=== PATIENT | male | born 1970 | race Caucasian/White ===

== ENCOUNTER → 2023-06-20 | Outpatient (CLI) | payer BC ==
--- NOTE | 2023-06-20 16:36 | Diagnostic Imaging Report ---
EXAMINATION: Left wrist radiographs, 3 views. COMPARISON: None. HISTORY: 52-year-old male, left wrist pain. FINDINGS: There is no identified acute fracture. There is no radiopaque foreign body. Bone mineralization and alignment is unremarkable. The joint spaces are well preserved. IMPRESSION: Unremarkable radiographs of the left wrist. Dictated by: Dictated on workstation # [id number]
--- NOTE | 2023-06-20 16:36 | Diagnostic Imaging Report ---
EXAMINATION: Right knee radiographs, 3 views. COMPARISON: None. HISTORY: 52-year-old male, right knee pain. FINDINGS: There is mild patellofemoral compartment joint space loss. There is no knee joint effusion. There is mild medial compartment joint space loss with osteophytes. There is no identified acute fracture. There is a probable intrajugular ossified body anteriorly measuring 8 mm in size. There is degenerative type patellar enthesopathy. IMPRESSION: 1. Mild medial and patellofemoral compartment osteoarthritis without large knee joint effusion. Probable intra-articular body anteriorly measuring 8 mm in size. Dictated by: Dictated on workstation # [id number]
== END ==
LOC: RAD 15:50
PROVIDERS: ATTEND Physician Assistant
DX: M17.11 Unilateral primary osteoarthritis, right knee (principal); M25.532 Pain in left wrist; G89.29 Other chronic pain
CPT/HCPCS: 73110; 73562

== ENCOUNTER 2023-08-13 19:06 | Emergency (ER) | payer BC ==
[~2023-08-13] VITALS: Ht 182 cm; Wt 79.8 kg
[2023-08-13 19:29] VITALS: BP 145/92
--- NOTE | 2023-08-13 20:10 | ED Cough/URI ---
General Chief Complaint: Cough/Cold/Flu Symptoms Stated Complaint: BURNING IN CHEST, CONGESTION, HEAVY SWEATING Nursing Triage Note: PATIENT STATES SHORT OF BREATH, STATES FELLS LIKE HE IS ONLY USING "HALF HIS LUNG" TO BREATH Source: patient Exam Limitations: no limitations History of Present Illness Date Seen by Provider: Aug 13, 2023 Time Seen by Provider: 19:53 Initial Comments 52-year-old male presents to the ER with complaint of "feeling like I am breathing with half of my lungs." He reports symptoms started when he woke up at 1:30 PM for work today. Reports that when he was at work he had an episode of sweating, states he also had a burning pain in his lungs when he was breathing. States that the burning pain is gone. He reports he has nasal congestion and a sinus headache. Denies cough, chest pain, shortness of air, abdominal pain, nausea, vomiting, diarrhea. Reports that his fiance recently had some nasal congestion, but did not have the other symptoms. Allergies and Home Medications Patient Home Medication List Home Medication List Reviewed: Yes Review of Systems Review of Systems Constitutional: see HPI Past Qvjkrnp-Imgbva-Ukmaln Hx Patient Social History Use of E-Cig and/or Vaping dev: Yes E-Cig or Vaping type used: Nicotine Immunizations Up To Date Influenza Vaccine Up-to-Date: Yes; Up-to-Date Past Medical History Surgery/Hospitalization HX: THRYOID, DIABETIC, PSYCH Physical Exam Vital Signs - First Documented 08/13/23 19:29 Temp 36.9 Pulse 91 Resp 20 B/P (MAP) 145/92 (109) Pulse Ox 97 O2 Delivery Room Air Capillary Refill : Less Than 3 Seconds Height: '" Weight: lbs. oz. kg; 24.00 BMI Method: General Appearance: WD/WN, no apparent distress Neck: supple, normal inspection Respiratory: lungs clear, normal breath sounds, no respiratory distress, no accessory muscle use Cardiovascular: regular rate, rhythm Extremities: normal range of motion, normal inspection Neurologic/Psychiatric: alert, normal mood/affect Skin: normal color, warm/dry Progress/Results/Core Measures Suspected Sepsis SIRS Temperature: Pulse: 91 Respiratory Rate: 20 Blood Pressure 145 /92 Mean: 109 Results/Orders Lab Results Laboratory Tests Test 08/13/23 20:48 Range/Units Influenza Type A (RT-PCR) Not Detected Not Detecte Influenza Type B (RT-PCR) Not Detected Not Detecte SARS-CoV-2 RNA (RT-PCR) Not Detected Not Detecte My Orders Orders - AMBER CISNEROS APRN Covid 19 Inhouse Test (08/13/23 19:53) Influenza A And B By Pcr (08/13/23 19:53) Chest 1 View, Ap/Pa Only (08/13/23 19:53) Vital Signs/I&O 08/13/23 19:29 Temp 36.9 Pulse 91 Resp 20 B/P (MAP) 145/92 (109) Pulse Ox 97 O2 Delivery Room Air Capillary Refill : Less Than 3 Seconds Blood Pressure Mean: 109 Progress Note : Progress Note Patient seen and evaluated, resting comfortably in bed, no acute distress. Based on exam and symptoms, COVID and flu swab ordered, chest x-ray ordered. 2119 COVID and flu negative. Chest x-ray shows no acute cardiopulmonary process. Results discussed with patient. Patient's oxygen saturation has remained in the high 90s on room air. Patient is in no acute distress. Patient is stable for discharge. Discharge instructions and return precautions provided. Diagnostic Imaging Diagonstic Imaging: Xray Plain Films/CT/US/NM/MRI: chest Comments [facility] [place], [place] NAME: TONIE BLAND Rufino [facility] REC#: [id number] PT STATUS: DEP ER : [id number] PHYSICIAN: AMBER CISNEROS APRN ADMIT DATE: 08/13/23/ER Signed Date of Exam:08/13/23 CHEST 1 VIEW, AP/PA ONLY INDICATION: Short of air. EXAMINATION: Chest 08/13/2023. FINDINGS: The cardiomediastinal silhouette is unremarkable. The pulmonary vasculature is within normal limits. The lungs and pleural spaces are clear. IMPRESSION: No evidence of an acute cardiopulmonary process. Dictated by: Dictated on workstation # [id number] Dict: 08/13/232021 Trans: 08/13/232210 CV [id number] Interpreted by: AMALIA ALEX MD Electronically signed by: AMALIA ALEX MD 08/13/232210 Departure Impression Primary Impression: Upper respiratory infection Disposition: 01 HOME, SELF-CARE Condition: Stable Departure-Patient Inst. Decision time for Depature: 21:23 Referrals: SUDHA GODOY (PCP/Family) Primary Care Physician Patient Instructions: Viral Upper Respiratory Infection, Adult (DC) Add. Discharge Instructions: Make sure you stay hydrated. You may try to use Flonase or Serena pot rinses with distilled water to help your sinuses. Sleep with a humidifier, also use distilled water, to help your symptoms. Take Tylenol or ibuprofen as needed for pain and fever. Boost your immune system with vitamin C, vitamin D, and zinc. If your nasal congestion last 10 days or longer, you may need an antibiotic. Return for severe shortness of breath, or any other new, concerning, or worsening symptoms. All discharge instructions reviewed with patient and/or family. Voiced understanding. AMBER CISNREOS APRN Aug 13, 2023 20:10
--- NOTE | 2023-08-13 20:31 | Diagnostic Imaging Report ---
INDICATION: Short of air. EXAMINATION: Chest 08/13/2023. FINDINGS: The cardiomediastinal silhouette is unremarkable. The pulmonary vasculature is within normal limits. The lungs and pleural spaces are clear. IMPRESSION: No evidence of an acute cardiopulmonary process. Dictated by: Dictated on workstation # [id number]
== END 2023-08-13 21:36 | disposition home or self-care (01) ==
LOC: EDUNIT# 19:06 → ER 19:09
DX: J06.9 Acute upper respiratory infection, unspecified (principal); F17.290 Nicotine dependence, other tobacco product, uncomplicated
CPT/HCPCS: 71045; 87636; 99285